=== PATIENT | female | born 1955 | race Two or more races ===

== ENCOUNTER → 2017-12-14 | Outpatient (CLI) | payer OTHER | END | disposition home or self-care (01) | LOC: SONOGRAMA 15:41 | DX: C50.912 Malignant neoplasm of unspecified site of left female breast (principal) ==

== ENCOUNTER 2018-01-30 07:39 | Outpatient (CLI) | payer OTHER | END 2018-01-30 17:00 | disposition home or self-care (01) | LOC: SONOGRAMA 07:39 | DX: R16.0 Hepatomegaly, not elsewhere classified (principal) ==

== ENCOUNTER → 2018-12-19 | Outpatient (CLI) | payer OTHER | END | disposition home or self-care (01) | LOC: SONOGRAMA 15:48 | DX: C50.912 Malignant neoplasm of unspecified site of left female breast (principal) ==

== ENCOUNTER 2019-04-22 12:09 | Outpatient (CLI) | payer OTHER | END 2019-04-22 13:50 | disposition home or self-care (01) | LOC: RAD 12:09 | DX: S99.922A Unspecified injury of left foot, initial encounter (principal) ==

== ENCOUNTER → 2019-12-12 | Outpatient (CLI) | payer OTHER | END | disposition home or self-care (01) | LOC: SONOGRAMA 10:46 → MAMO-SONO 11:15 | PROVIDERS: ATTEND Internal Medicine Hematology & Oncology | DX: C50.912 Malignant neoplasm of unspecified site of left female breast (principal) ==

== ENCOUNTER → 2020-03-03 | Outpatient (CLI) | payer OTHER | END | disposition home or self-care (01) | LOC: SONOGRAMA 08:53 | PROVIDERS: ATTEND Radiology Diagnostic Radiology | DX: N95.0 Postmenopausal bleeding (principal) ==

== ENCOUNTER → 2020-04-06 | Outpatient (CLI) | payer OTHER ==
[~2020-04-06] MED LIST: COZAAR50 MG PO; EVISTA60 MG PO; IBU600 MG PO; LIPITOR20 MG PO; TOPROL XL100 M1 PO; XANAX0.25 MG PO; ZOLOFT50 MG PO
== END | disposition home or self-care (01) ==
LOC: RAD 09:14
DX: I10 Essential (primary) hypertension (principal)

== ENCOUNTER 2020-04-13 05:30 | Day surgery (SDC) | payer OTHER ==
[~2020-04-13 05:30] MED LIST changes: -IBU600 MG PO
[2020-04-13] MEDS ORDERED: IBU600 MG PO (09:07)
== END 2020-04-13 14:05 | disposition home or self-care (01) ==
LOC: CIR.AMB 05:30
PROVIDERS: ATTEND Obstetrics & Gynecology Gynecology
DX: C54.1 Malignant neoplasm of endometrium (principal); Z20.828 Contact with and (suspected) exposure to other viral communicable diseases; D25.0 Submucous leiomyoma of uterus

== ENCOUNTER 2020-04-28 08:26 | Outpatient (CLI) | payer OTHER ==
[~2020-04-28 08:26] MED LIST changes: +IBU600 MG PO
== END 2020-04-28 08:35 | disposition home or self-care (01) ==
LOC: NUCLEAR 08:26
PROVIDERS: ATTEND Specialist
DX: C54.1 Malignant neoplasm of endometrium (principal); Z08 Encounter for follow-up examination after completed treatment for malignant neoplasm
CPT/HCPCS: 78816; A9552

== ENCOUNTER 2020-04-30 12:07 | Outpatient (CLI) | payer OTHER | END 2020-04-30 13:24 | disposition home or self-care (01) | LOC: SONOGRAMA 12:07 | PROVIDERS: ATTEND Pathology Anatomic Pathology & Clinical Pathology | DX: R59.0 Localized enlarged lymph nodes (principal) ==

== ENCOUNTER → 2020-05-27 | Outpatient (CLI) | payer OTHER | END | disposition home or self-care (01) | LOC: TOM 10:52 | PROVIDERS: ATTEND Otolaryngology | DX: R22.1 Localized swelling, mass and lump, neck (principal); D37.030 Neoplasm of uncertain behavior of the parotid salivary glands ==

== ENCOUNTER 2020-06-15 09:44 | Outpatient (CLI) | payer OTHER | END 2020-06-15 09:46 | disposition home or self-care (01) | LOC: SONOGRAMA 09:44 | PROVIDERS: ATTEND Pathology Anatomic Pathology & Clinical Pathology | DX: E04.1 Nontoxic single thyroid nodule (principal) ==

== ENCOUNTER → 2020-12-11 | Outpatient (CLI) | payer OTHER | END | disposition home or self-care (01) | LOC: MAMO-SONO 10:30 → SONOGRAMA 10:37 | PROVIDERS: ATTEND Otolaryngology | DX: E04.9 Nontoxic goiter, unspecified (principal); C50.912 Malignant neoplasm of unspecified site of left female breast ==

== ENCOUNTER 2021-06-15 07:48 | Outpatient (CLI) | payer OTHER | END 2021-06-15 07:49 | disposition home or self-care (01) | LOC: NUCLEAR 07:48 | PROVIDERS: ATTEND Internal Medicine Hematology & Oncology | DX: C54.1 Malignant neoplasm of endometrium (principal); C50.911 Malignant neoplasm of unspecified site of right female breast | CPT/HCPCS: 78816; A9552 ==

== ENCOUNTER 2021-10-11 08:00 | Outpatient (CLI) | payer OTHER | END 2021-10-11 08:30 | disposition home or self-care (01) | LOC: PPH VACUNA 08:00 | PROVIDERS: ATTEND Emergency Medicine Pediatric Emergency Medicine | DX: Z23 Encounter for immunization (principal) ==

== ENCOUNTER 2021-12-15 08:57 | Outpatient (CLI) | payer OTHER | END 2021-12-15 09:09 | disposition home or self-care (01) | LOC: SONOGRAMA 08:57 | PROVIDERS: ATTEND Specialist | DX: C50.912 Malignant neoplasm of unspecified site of left female breast (principal) ==

== ENCOUNTER → 2021-12-20 10:09 | Outpatient (CLI) | payer OTHER | END | disposition home or self-care (01) | LOC: NUCLEAR 10:00 | PROVIDERS: ATTEND Specialist | DX: M81.0 Age-related osteoporosis without current pathological fracture (principal) ==

== ENCOUNTER 2021-12-29 13:52 | Outpatient (CLI) | payer OTHER | END 2021-12-29 14:05 | disposition home or self-care (01) | LOC: SONOGRAMA 13:52 | PROVIDERS: ATTEND Surgery | DX: R22.1 Localized swelling, mass and lump, neck (principal); E04.9 Nontoxic goiter, unspecified ==

== ENCOUNTER 2022-04-05 10:25 | Outpatient (CLI) | payer OTHER | END 2022-04-05 10:35 | disposition home or self-care (01) | LOC: PPH VACUNA 10:25 | PROVIDERS: ATTEND Emergency Medicine Pediatric Emergency Medicine | DX: Z23 Encounter for immunization (principal) ==

== ENCOUNTER 2022-04-12 07:26 | Outpatient (CLI) | payer OTHER | END 2022-04-12 07:34 | disposition home or self-care (01) | LOC: NUCLEAR 07:26 | PROVIDERS: ATTEND Internal Medicine Hematology & Oncology | DX: C54.1 Malignant neoplasm of endometrium (principal) ==

== ENCOUNTER → 2022-07-22 14:40 | Outpatient (CLI) | payer OTHER | END | disposition home or self-care (01) | LOC: LAB 14:40 | PROVIDERS: ATTEND Radiology Diagnostic Radiology | DX: C54.1 Malignant neoplasm of endometrium (principal); R10.84 Generalized abdominal pain ==

== ENCOUNTER → 2022-07-25 | Outpatient (CLI) | payer OTHER | END | disposition home or self-care (01) | LOC: TOM 07:03 | PROVIDERS: ATTEND Specialist | DX: C54.1 Malignant neoplasm of endometrium (principal); R10.84 Generalized abdominal pain | CPT/HCPCS: 74178; Q9965 ==

== ENCOUNTER → 2022-11-07 | Outpatient (CLI) | payer OTHER | END | disposition home or self-care (01) | LOC: SONOGRAMA 08:35 | PROVIDERS: ATTEND Surgery | DX: E04.9 Nontoxic goiter, unspecified (principal) ==

== ENCOUNTER 2022-11-14 07:43 | Outpatient (CLI) | payer OTHER | END 2022-11-14 07:48 | disposition home or self-care (01) | LOC: NUCLEAR 07:43 | PROVIDERS: ATTEND Specialist | DX: C56.9 Malignant neoplasm of unspecified ovary (principal) ==

== ENCOUNTER 2023-09-05 14:01 | Outpatient (CLI) | payer OTHER ==
[~2023-09-05 14:01] MED LIST changes: +DICLOFENAC POTA50 MG PO; +GABAPENTIN300 M2 PO
== END 2023-09-05 14:30 | disposition home or self-care (01) ==
LOC: SONOGRAMA 14:01
PROVIDERS: ATTEND Physical Medicine & Rehabilitation
DX: M75.101 Unspecified rotator cuff tear or rupture of right shoulder, not specified as traumatic (principal); M25.511 Pain in right shoulder

== ENCOUNTER 2023-09-11 10:57 | Outpatient (CLI) | payer OTHER | END 2023-09-11 11:38 | disposition home or self-care (01) | LOC: SONOGRAMA 10:57 | DX: E03.9 Hypothyroidism, unspecified (principal); E04.2 Nontoxic multinodular goiter; C07 Malignant neoplasm of parotid gland ==

== ENCOUNTER 2024-03-08 14:54 | Emergency (ER) | payer OTHER ==
[~2024-03-08] VITALS: Ht 152.4 cm; Wt 61.2 kg
[2024-03-08] MEDS ORDERED: CLONAZEPAM0.5 MG PO (15:46)
[2024-03-08] MEDS ORDERED: SYNTHROID88 MCG PO (15:46)
[2024-03-08] MEDS ORDERED: FAMOTIDINE/PF 20 MG in 0.9 % SODIUM CHLORIDE 8 ML IV PUSH STA (16:20)
[2024-03-08] MEDS ORDERED: 0.9 % SODIUM CHLORIDE 1,000 ML IV SCH (16:30)
[2024-03-08] MEDS ORDERED: FAMOTIDINE/PF 20 MG/2 ML VIAL ONE (16:43)
[2024-03-08] MEDS ORDERED: ONDANSETRON HCL 2 MG/ML VIAL IV ONE (17:00)
[2024-03-08] MEDS ORDERED: ONDANSETRON HCL 2 MG/ML VIAL ONE (17:02)
[2024-03-08 17:04] LABS: HEMATOCRIT 37.1 % (36.0-45.00); HEMOGLOBIN 12.5 g/dL (12.0-15.00); MEAN CORPUSCULAR HGB CONC 33.7 g/dl (32.0-36.0); PLATELET COUNT 260 K/uL (150-450); RED BLOOD COUNT 4.03 M/uL (4.00-6.00); RED CELL DISTRIBUTION WIDTH 15.8 % (11.5-14.5)
[2024-03-08 17:38] LABS: ALBUMIN 3.4 gm/dL (3.4-5.0); BILIRUBIN TOTAL 0.42 mg/dL (0.3-1.2); CREATININE SERUM 0.77 mg/dL (0.55-1.02); GFR 74.77; GLOBULINA 3.8 G/DL (2.4-3.5); POTASSIUM 4.04 mEq/L (3.5-5.1); TOTAL PROTEIN 7.2 gm/dL (6.4-8.2)
[2024-03-08] MEDS ORDERED: ONDANSETRON ODT8 MG PO (18:22)
[2024-03-08] MEDS ORDERED: PEPCID AC20 MG PO (18:22)
== END 2024-03-08 19:34 | disposition home or self-care (01) ==
LOC: ER 14:55
PROVIDERS: General Practice
DX: K29.70 Gastritis, unspecified, without bleeding (principal); R11.10 Vomiting, unspecified; I10 Essential (primary) hypertension
CPT/HCPCS: 36415; 96365; 96366; 99282; J2405; J3490; J7030

== ENCOUNTER 2024-04-23 11:15 | Outpatient (CLI) | payer OTHER ==
[~2024-04-23 11:15] MED LIST changes: +CLONAZEPAM0.5 MG PO; +ONDANSETRON ODT8 MG PO; +PEPCID AC20 MG PO; +SYNTHROID88 MCG PO
== END 2024-04-23 15:56 | disposition home or self-care (01) ==
LOC: SONOGRAMA 11:15
DX: E04.2 Nontoxic multinodular goiter (principal); E03.9 Hypothyroidism, unspecified

== ENCOUNTER → 2025-03-24 | Outpatient (CLI) | payer OTHER | END | disposition home or self-care (01) | LOC: NUCLEAR 09:51 | PROVIDERS: ATTEND Family Medicine | DX: M81.0 Age-related osteoporosis without current pathological fracture (principal) ==

== ENCOUNTER 2025-06-26 14:54 | Inpatient (IN) | payer OTHER ==
[~2025-06-26] VITALS: Ht 152.4 cm; Wt 66.2 kg
[2025-06-26 16:03] VITALS: BP 145/86; O2SAT 99
[2025-06-26] MEDS ORDERED: FOSAMAX70 MG (16:07)
--- NOTE | 2025-06-26 16:07 | NUR ---
PACIENTE ALERTA Y ORIENTADA EN COMPANIA DE ESPOSO, LA MISMA REFIERE QUE TIENE HX CANCERN EN EDOMETRIO Y PRESENTA PRESION/FALTA DE AIRE EN EL AREA DEL ABDOMEN. LA MISMA REFIERE QUE SE LE CARDENAS RERALIZADO 3 PARASENTESIS PARA ELIMINAR FLUIDOS EN AREA. SE MIDEN V/S Y SE UBICA
--- NOTE | 2025-06-26 17:04 | NUR ---
SE ORIENTA PTE SOBRE TX A SEGUIR, LA MISMA REFIERE ENTENDER. SE JOSE G MUESTRA DE LAB Y SE CANALIZA BAJO MEDIDAS ASEPTICAS
[2025-06-26 17:31] LABS: BASO % 0.6 % (0.1-1.2); EOS # 0.06 (0.04-0.54); EOS % 0.2 % (0.7-7.0); LYMPH # 1.25 (1.18-3.74); LYMPH % 4.9 % (19.3-53.1); MEAN PLATELET VOLUME 11.60 fl (9.4-12.4); MONO # 2.79 (0.24-0.82); MONO % 10.9 % (4.7-12.5); NEUT # 17.02 (1.56-6.13); NEUT % 66.2 % (34.0-71.1); RED CELL DISTRIBUTION WIDTH 18.3 % (11.6-14.4)
[2025-06-26 17:58] LABS: INR 1.0
[2025-06-26 18:02] LABS: BUN CREA RATIO 21.0 (7.0-25.0); CREATININE SERUM 0.58 mg/dL (0.55-1.02); GFR 103.08; GLUCOSE FASTING 111.0 mg/dL (65-100); OSMOLALITY SERUM 289.0 MOSM/KG (275-295)
[2025-06-26] MEDS ORDERED: PIPERACILLIN/TAZOBACTAM SODIUM 3.375 GM in DEXTROSE 5 % IN WATER 100 ML IV SCH (18:20)
[2025-06-26] MEDS ORDERED: ACETAMINOPHEN 500 MG GEL..CAP PO PRN (18:30)
[2025-06-26] MEDS ORDERED: 0.9 % SODIUM CHLORIDE 1,000 ML IV SCH (18:30)
[2025-06-26] MEDS ORDERED: POTASSIUM CHLORIDE IN WATER 100 ML IV SCH (18:46)
[2025-06-26] MEDS ORDERED: POTASSIUM BICARBONATE/CIT AC 25 MEQ TABLET.EFF PO ONE (19:00)
[2025-06-26 21:24] LABS: URINE APPEARANCE Clear; URINE BILIRRUBIN Negative (NEGATIVE); URINE BLOOD Negative; URINE COLOR Yellow; URINE GLUCOSE Negative (NEGATIVE); URINE KETONE Negative (NEGATIVE); URINE LEUKOCYTE Small; URINE NITRATE Negative; URINE PROTEIN Negative (NEGATIVE); URINE UROBILINOGEN 1.0 E.U./dl
[2025-06-26 21:29] LABS: URINE BACTERIA 147.5 uL (0.0-1933); URINE EPITHELIAL CELLS 6.2 uL (0.0-38.8); URINE RBC 2.8 uL (0.0-20.8); URINE WBC 139.6 uL (0.0-23.2)
[2025-06-26 22:04] LABS: URINE CAST 0.42 uL (0.0-1.40)
[2025-06-27] MEDS ORDERED: LEVOTHYROXINE SODIUM 88 MCG TABLET PO SCH (06:00)
[2025-06-27] MEDS ORDERED: ATORVASTATIN CALCIUM 40 MG TABLET PO SCH (09:00)
[2025-06-27] MEDS ORDERED: METOPROLOL SUCCINATE 100 MG TAB.SR.24H PO SCH (09:00)
[2025-06-27] MEDS ORDERED: SERTRALINE HCL 50 MG TABLET PO SCH (09:00)
[2025-06-27] MEDS ORDERED: PANTOPRAZOLE SODIUM 40 MG/VIAL VIAL IV SCH (09:00)
== END 2025-06-27 14:18 | disposition left against medical advice (07) | DRG 948 ==
LOC: ER 14:55 → SEC-K 18:49 → SURH 18:49 → MEDJ 22:50 → SURH 06-27 03:42
PROVIDERS: General Practice; ADMIT Internal Medicine; ATTEND Internal Medicine
PROC: 8E0ZXY6 Isolation (ICD-10-PCS; principal; 2025-06-26)
PROC: 0W9G3ZZ Drainage of Peritoneal Cavity, Percutaneous Approach (ICD-10-PCS; 2025-06-26)
DX: R18.8 Other ascites (principal); R65.10 Systemic inflammatory response syndrome (SIRS) of non-infectious origin without acute organ dysfunction; C54.1 Malignant neoplasm of endometrium; R06.02 Shortness of breath; Z53.29 Procedure and treatment not carried out because of patient's decision for other reasons